=== PATIENT | male | born 1945 | race Caucasian/White ===

== ENCOUNTER 2016-09-15 10:30 | Day surgery (SDC) | payer OTHER ==
[2016-09-10 15:36] VITALS: BMI 29.9
[~2016-09-15 10:30] MED LIST: LACTATED RINGERS 1,000 ML IV SCH; LIDOCAINE 1% 20 ML VIAL (10MG/ML) FOR IV START INTRADERMA PRN
[2016-09-15 11:21] VITALS: TEMP 97.5
[2016-09-15] MEDS ORDERED: PROPOFOL 10 MG/ML 20 ML VIAL IV ONE (11:48)
[2016-09-15] MEDS ORDERED: LIDOCAINE 1% INJ 10MG/ML (20 ML MDV) ONE (11:48)
--- NOTE | 2016-09-15 12:04 | P.PCN ---
Date of Procedure: 09/15/16 Preoperative Diagnosis: Postoperative Diagnosis: Procedure(s) Performed: BRIEF HISTORY: Patient is a 70-year-old pleasant white male, scheduled for an elective colonoscopy as a part of evaluation of prior history of colon polyps. Last endoscopy was 5 years ago according to the patient. PROCEDURE PERFORMED: Colonoscopy. PREOPERATIVE DIAGNOSIS: History of colon polyps. IV sedation per Anesthesia. PROCEDURE: After informed consent was obtained, the patient, was brought into the endoscopy unit. IV sedation was administered by Anesthesia under continuous monitoring. Digital rectal examination was normal. Initially the Olympus CF- 160 flexible video colonoscope was then inserted in the rectum, gradually advanced into the cecum without any difficulty. Careful examination was performed as the scope was gradually being withdrawn. Ileocecal valve and the appendiceal orifice were visualized and appeared normal. Prep was excellent. Mucosa of the cecum, ascending colon, transverse colon, descending colon, sigmoid colon, and rectum appeared normal. Scattered sigmoid diverticula seen. Retroflexion was performed in the rectum and small internal hemorrhoids were seen. The patient tolerated the procedure well. IMPRESSION: Normal-appearing colon from rectum to cecum with no evidence of colorectal neoplasia. Scattered sigmoid diverticulosis. Small internal hemorrhoids. RECOMMENDATIONS: Findings of this examination were discussed with the patient as well as his family. He was advised to have a repeat screening surveillance coloscopy in 5 years from now because of prior history of colon polyps. Implants: Indications for Procedure: Operative Findings: Description of Procedure:
[2016-09-15 12:11] VITALS: BP 114/74; PULSE 54; RESP 14
== END 2016-09-15 12:57 | disposition home or self-care (01) ==
LOC: ORWHC2ENDO 10:30
PROVIDERS: ATTEND Internal Medicine Gastroenterology
DX: Z12.11 Encounter for screening for malignant neoplasm of colon (principal); K57.30 Diverticulosis of large intestine without perforation or abscess without bleeding; K64.8 Other hemorrhoids; Z86.010 Personal history of colon polyps; I10 Essential (primary) hypertension; E78.5 Hyperlipidemia, unspecified; K21.9 Gastro-esophageal reflux disease without esophagitis; E07.9 Disorder of thyroid, unspecified; M10.9 Gout, unspecified; H40.9 Unspecified glaucoma; Z79.899 Other long term (current) drug therapy; Z88.2 Allergy status to sulfonamides
CPT/HCPCS: J2001; J2704; G0105

== ENCOUNTER → 2018-09-08 | Outpatient (CLI) | payer OTHER ==
--- NOTE | 2018-09-08 11:19 | US ---
EXAMINATION TYPE: US carotid duplex BILAT DATE OF EXAM: 09/08/2018 COMPARISON: NONE CLINICAL HISTORY: R42 DIZZINESS AND GIDDINESS. EXAM MEASUREMENTS: RIGHT: Peak Systolic Velocity (PSV) cm/sec ----- Right CCA: 82.4 ----- Right ICA: 78.5 ----- Right ECA: 192.4 ICA/CCA ratio: 1.0 RIGHT: End Diastole cm/sec ----- Right CCA: 22.8 ----- Right ICA: 22.8 ----- Right ECA: 17.0 LEFT: Peak Systolic Velocity (PSV) cm/sec ----- Left CCA: 86.3 ----- Left ICA: 133.3 ----- Left ECA: 107.7 ICA/CCA ratio: 1.5 LEFT: End Diastole cm/sec ----- Left CCA: 21.5 ----- Left ICA: 52.4 ----- Left ECA: 10.7 VERTEBRALS (direction of flow): Right Vertebral: Antegrade Left Vertebral: Antegrade Rhythm: Arrhythmia calcified and soft plaque bilaterally. Somewhat tortuous vessels. Grayscale, color Doppler, spectral Doppler imaging performed. Waveform analysis does not show signifi cant stenosis of the internal carotid arteries. Mild elevation of peak systolic velocity within the i nternal carotid artery on the left without elevated internal carotid to external carotid artery ratio , there is mild increased velocity on end diastole within the left internal carotid artery IMPRESSION: There are atheromatous changes present greater in the carotid bulb on the left which may be due to tortuous vessel. No hemodynamic significant stenosis of the proximal internal carotid art eries by Doppler criteria, an indirect measurement of carotid stenosis. Additional findings above. Co nsider follow-up. Criteria for Assigning % of Stenosis / Diameter reduction (Estimation based on the indirect measurements of the internal carotid artery velocities (ICA PSV). 1. Normal (no stenosis)=ICA PSV < 125 cm/s: ratio < 2.0: ICA EDV<40 cm/s. 2. Less than 50% stenosis=ICA PSV < 125 cm/s: ratio < 2.0: ICA EDV<40 cm/s. 3. 50 to 69% stenosis=ICA PSV of 125 to 230 cm/s: ration 2.0 ? 4.0: ICA EDV 40-100 cm/s. 4. Greater than 70% stenosis to near occlusion= ICA PSV > 230 cm/s: ratio > 4.0: ICA EDV > 100 cm/s. 5. Near occlusion= ICA PSV velocities may be low or undetectable: variable ratio and ICA EDV. 6. Total occlusion=unable to detect flow.
== END | disposition home or self-care (01) ==
LOC: RADUSWWP 09:07
PROVIDERS: ATTEND Family Medicine
DX: I65.22 Occlusion and stenosis of left carotid artery (principal)
CPT/HCPCS: 93880

== ENCOUNTER → 2020-09-18 | Outpatient (CLI) | payer OTHER ==
--- NOTE | 2020-09-18 12:07 | CT ---
EXAMINATION TYPE: CT abdomen pelvis w con DATE OF EXAM: 09/18/2020 COMPARISON: 02/05/2010 INDICATION: Right mid and lower quadrant pain DLP: 1002.9 mGycm, Automated exposure control for dose reduction was used. CONTRAST: 80 mL of Isovue 300. Study performed with Oral Contrast TECHNIQUE: Axial images were obtained from above the diaphragm to the pubic rami in the axial plane a t 5 mm thick sections. Reconstructed images are reviewed on the computer in the coronal plane. FINDINGS: Limited CT sections are obtained the lung bases. The lung bases are clear. CT ABDOMEN: Liver: There is a 1.9 cm cyst in the superior right lobe liver, present previously. Spleen: There is a heterogenous hypoechoic lesion extending from the medial aspect of the spleen ashlee uring 3.2 x 0.5 cm. This is a new finding from comparison. Pancreas: Normal Adrenal glands: The adrenal glands are normal. Gallbladder: Normal Kidneys: No masses are evident. No hydronephrosis is present. There is a 3.6 cm cyst measuring 8 Ho unsfield units posterior lateral left kidney. Delayed images were obtained through the kidneys, whic h remain unremarkable. Aorta: Vascular calcification is within the aorta. Inferior vena cava: Normal. CT PELVIS: Loops of bowel within the abdomen and pelvis are normal. There are loops of bowel which are incom pletely distended or lack oral contrast limiting their evaluation. Fecal debris is through the colon. A few diverticular changes are within the descending colon and additional multiple diverticuli witho ut acute diverticulitis are within the sigmoid colon. Large fecal bolus is of the rectum. Appendix: Normal as visualized. Urinary bladder: Normal. Genitourinary structures: Prostate is visualized. Multiple surgical clips are present compatible with prior prostatectomy. Osseous structures: There are couple small sclerotic areas within the right femoral neck and within t he posterior pubic ramus and within the medial left pubic ramus. Bone islands and sclerotic metastasi s could be considered. There is an additional punctate sclerotic area within the mid right iliac wing . Facet degenerative changes are through the lower lumbar spine. IMPRESSIONS: 1. Complex heterogenous hypoechoic area which appears to extend from the medial spleen. Additional w orkup is recommended. 2. Diverticulosis without acute diverticulitis. 3. Few scattered punctate sclerotic areas may be bone islands or early metastasis. 4. Left renal cyst
== END | disposition home or self-care (01) ==
LOC: RADCTMAIN 08:36
DX: K57.90 Diverticulosis of intestine, part unspecified, without perforation or abscess without bleeding (principal); N28.1 Cyst of kidney, acquired; R93.5 Abnormal findings on diagnostic imaging of other abdominal regions, including retroperitoneum; R10.30 Lower abdominal pain, unspecified
CPT/HCPCS: 82565; 84520; 74177; 36415; Q9967

== ENCOUNTER → 2020-10-31 | Outpatient (CLI) | payer OTHER ==
--- NOTE | 2020-10-31 13:27 | PE ---
EXAMINATION TYPE: PET CT fusion skull to thigh DATE OF EXAM: 10/31/2020 COMPARISON: CT abdomen and pelvis September 18, 2020 and older study February 05, 2010. HISTORY: Recent abnormal CT, history of prostate cancer and left-sided kidney cancer. TECHNIQUE: Following the intravenous administration of 10.20 mCi of F-18 FDG, whole body images are performed from the skull base to the midthigh. Images are reviewed on the computer in the coronal, a xial, and sagittal planes. Reconstructed rotating images are created on independent workstation and reviewed on the computer. A localization and attenuation correction CT is performed in conjunction with the PET scan. Blood glucose level equals 89. SCAN: Initial Scan FINDINGS: SKULL BASE AND NECK: No suspicious hypermetabolic uptake. CHEST, MEDIASTINUM, AND HILAR REGION: No suspicious hypermetabolic uptake. ABDOMEN AND PELVIS: No suspicious hypermetabolic uptake. OSSEOUS STRUCTURES: No suspicious hypermetabolic uptake. OTHER CT: Nasal septum is deviated to right of midline. [id number] calcified plaque left caroti d bulb. Mild to moderate coronary artery calcification is present. Stable 2.3 cm thin-walled cyst in the left hepatic lobe axial image 132. Punctate 1 to 2 mm nonobstru cting calculus right kidney axial image 157. Stable 3.8 cm thin-walled cyst axial image 171 posterior ly lower pole of the left kidney. Sigmoid colonic diverticulosis. Surgical clips from prostatectomy i n the pelvis. Bladder poorly distended with moderate concentric wall thickening current study. Postsu rgical changes in the anterior abdominal intraperitoneal wall without recurrent hernia redemonstrated . There is better visualized cortical volume loss posteriorly and hyperdense material suspected surgica l changes to the upper pole left kidney laterally on current study. Just superior and posterior to th is abutting the medial aspect of the spleen there is redemonstration of oval mass containing fat and soft tissue density that has some surrounding tiny linear hyperdense material possible surgical clips . No abnormal hypermetabolic uptake at this level identified. Lesion is posterior and appears separat e to the left adrenal gland. IMPRESSION: No suspicious abnormal uptake to suggest hypermetabolic neoplasm. Given that the area of concern was at site of prior surgical change for solid enhancing renal mass or neoplasm I would stron gly favor a benign etiology such as fat necrosis. A retroperitoneal low-grade liposarcoma however can not be entirely excluded. Advise surgical referral to reassess.
== END | disposition home or self-care (01) ==
LOC: RADPETMAIN 07:40
DX: R93.5 Abnormal findings on diagnostic imaging of other abdominal regions, including retroperitoneum (principal); Z85.46 Personal history of malignant neoplasm of prostate; Z85.528 Personal history of other malignant neoplasm of kidney
CPT/HCPCS: 78815; A9552

== ENCOUNTER 2020-12-09 08:21 | Observation (INO) | payer OTHER, MEDICARE ==
[2020-12-09] MEDS ORDERED: ASPIRIN 81 MG PO STA (08:38)
--- NOTE | 2020-12-09 08:42 | ED ---
General Adult HPI - General Chief complaint: Chest Pain Stated complaint: chest pain Time Seen by Provider: 12/09/20 08:26 Source: patient Mode of arrival: ambulatory Limitations: no limitations - History of Present Illness Initial comments: Dictation was produced using iCAD dictation software. please excuse any grammatical, word or spelling errors. Chief Complaint: 75-year-old male past medical history of dyslipidemia hypertension presents to emergency department for episodic chest pain ongoing for the last 10 days History of Present Illness: Patient is a 75-year-old male he has past medical history of dyslipidemia and hypertension. Patient states that for the last 10 days he would have daily episodes of chest pain. He states that he would have 2-3 episodes. He describes them as burning across his anterior chest. Non- radiating to the shoulders or jaw. No associated diaphoresis or nausea. 4-5 years ago patient had a negative stress test. He has not seen a bookseamer blindstitch for any other reason. No history of coronary artery disease. Patient states his father from a aortic dissection and his grandfather on that side had allegedly a heart attack. Patient denies any symptoms currently. States that his symptoms last for several minutes. He had an episode this morning. The ROS documented in this emergency department record has been reviewed and confirmed by me. Those systems with pertinent positive or negative responses have been documented in the HPI. All other systems are other negative and/or noncontributory. PHYSICAL EXAM: General Impression: Alert and oriented x3, not in acute distress HEENT: Normocephalic atraumatic, extra-ocular movements intact, pupils equal and reactive to light bilaterally, mucous membranes moist. Cardiovascular: Heart regular rate and rhythm Chest: Able to complete full sentences, no retractions, no tachypnea Abdomen: abdomen soft, non-tender, non-distended, no organomegaly Musculoskeletal: Pulses present and equal in all extremities, no peripheral otto ma Motor: no focal deficits noted Neurological: CN II-XII grossly intact, no focal motor or sensory deficits noted Skin: Intact with no visualized rashes Psych: Normal affect and mood ED course: 75-year-old male presents to the emergency department for atypical chest pain with typical features. Vital signs upon arrival are within acceptable limits. Laboratory evaluation obtained. CBC, coag panel, metabolic panel is unremarkable. First troponin is negative. Patient reevaluated bedside at 10:06 AM. Denies any recurrence of chest pain. Disposition options were discussed. Patient is agreeable for observation admission with cardiac monitoring, serial troponins and consultation to cardiology. Patient given aspirin. EKG interpretation: Ventricular rate 63, normal sinus rhythm,. 152, QRS 80, QTc 401. No MA prolongation, no QTC prolongation, no ST or T-wave changes noted. Overall, this EKG is unremarkable - Related Data Home Medications Medication Instructions Recorded Confirmed Atorvastatin [Lipitor] 40 mg PO HS 09/10/16 12/09/20 Brinzolamide/Brimonidine Tart 1 drop BOTH EYES TID 09/10/16 12/09/20 [Simbrinza 1%-0.2% Eye Drops] Latanoprost Ophth [Xalatan 0.005%] 1 drops BOTH EYES HS 09/10/16 12/09/20 Levothyroxine Sodium [Synthroid] 25 mcg PO DAILY 09/10/16 12/09/20 Losartan [Cozaar] 25 mg PO DAILY 09/10/16 12/09/20 allopurinoL [Zyloprim] 100 mg PO DAILY 09/10/16 12/09/20 Betamethasone Dipropionate 1 applic TOPICAL DAILY PRN 12/09/20 12/09/20 [Betamethasone Dipropionate 0.05%] Brimonidine Tartrate [Mirvaso] 1 applic TOPICAL DAILY 12/09/20 12/09/20 Doxycycline Hyclate 50 mg PO DAILY 12/09/20 12/09/20 Fluticasone Nasal [place] [Flonase 1 spray EA NOSTRIL DAILY PRN 12/09/20 12/09/20 Nasal [place]] Loratadine [Claritin] 10 mg PO DAILY PRN 12/09/20 12/09/20 Netarsudil Mesylate [Rhopressa] 1 drop LEFT EYE HS 12/09/20 12/09/20 Omeprazole [PriLOSEC] 40 mg PO DAILY 12/09/20 12/09/20 Sildenafil Citrate [Viagra] 100 mg PO DAILY PRN 12/09/20 12/09/20 Timolol [Betimol 0.5% Ophth Soln] 1 drop BOTH EYES BID 12/09/20 12/09/20 Allergies Allergy/AdvReac Type Severity Reaction Status Date / Time Sulfa (Sulfonamide Allergy Severe Unknown Verified 12/09/20 08:58 Antibiotics) Childhood Review of Systems ROS Statement: Those systems with pertinent positive or pertinent negative responses have been documented in the HPI. ROS Other: All systems not noted in ROS Statement are negative. Past Medical History Past Medical History: Cancer, GERD/Reflux, Hyperlipidemia, Hypertension, Prostate Disorder Additional Past Medical History / Comment(s): GLAUCOMA,KIDNEY CANCER, PROSTATE CANCER History of Any Multi-Drug Resistant Organisms: None Reported Past Surgical History: Hernia Repair, Orthopedic Surgery, Prostate Surgery Additional Past Surgical History / Comment(s): LEFT KIDNEY-PARTIAL REMOVED, RIGHT SHOULDER, CATARACT SURGERY- BILATERAL, UMBILICAL HERNIA Past Anesthesia/Blood Transfusion Reactions: No Reported Reaction Past Psychological History: No Psychological Hx Reported Smoking Status: Never smoker Past Alcohol Use History: Occasional Past Drug Use History: None Reported - Past Family History Mother Family Medical History: No Reported History General Exam Limitations: no limitations Course Vital Signs 12/09/20 08:22 Temperature 97.2 F L Pulse Rate 64 Respiratory 16 Rate Blood Pressure 144/93 O2 Sat by Pulse 99 Oximetry Medical Decision Making - Lab Data Result diagrams: 12/09/20 08:39 12/09/20 08:39 Lab Results 12/09/20 12/09/20 12/09/20 Range/Units 08:39 08:39 08:39 WBC 5.4 (3.8-10.6) k/uL RBC 4.85 (4.30-5.90) m/uL Hgb 15.8 (13.0-17.5) gm/dL Hct 46.9 (39.0-53.0) % MCV 96.8 (80.0-100.0) fL MCH 32.6 (25.0-35.0) pg MCHC 33.7 (31.0-37.0) g/dL RDW 13.1 (11.5-15.5) % Plt Count 162 (150-450) k/uL MPV 7.9 Neutrophils % 67 % Lymphocytes % 18 % Monocytes % 7 % Eosinophils % 5 % Basophils % 1 % Neutrophils # 3.6 (1.3-7.7) k/uL Lymphocytes # 1.0 (1.0-4.8) k/uL Monocytes # 0.4 (0-1.0) k/uL Eosinophils # 0.3 (0-0.7) k/uL Basophils # 0.0 (0-0.2) k/uL PT 10.4 (9.0-12.0) sec INR 1.0 (<1.2) APTT 27.4 (22.0-30.0) sec Sodium 141 (137-145) mmol/L Potassium 4.1 (3.5-5.1) mmol/L Chloride 105 (98-107) mmol/L Carbon Dioxide 27 (22-30) mmol/L Anion Gap 9 mmol/L BUN 18 (9-20) mg/dL Creatinine 1.22 (0.66-1.25) mg/dL Est GFR (CKD-EPI)AfAm 66 (>60 ml/min/1.73 sqM) Est GFR (CKD-EPI)NonAf 57 (>60 ml/min/1.73 sqM) Glucose 147 H (74-99) mg/dL Calcium 9.4 (8.4-10.2) mg/dL Magnesium 1.9 (1.6-2.3) mg/dL Total Bilirubin 0.8 (0.2-1.3) mg/dL AST 35 (17-59) U/L ALT 30 (4-49) U/L Alkaline Phosphatase 84 (38-126) U/L Troponin I (0.000-0.034) ng/mL Total Protein 7.1 (6.3-8.2) g/dL Albumin 4.2 (3.5-5.0) g/dL Lipase 129 (23-300) U/L 12/09/20 Range/Units 08:39 WBC (3.8-10.6) k/uL RBC (4.30-5.90) m/uL Hgb (13.0-17.5) gm/dL Hct (39.0-53.0) % MCV (80.0-100.0) fL MCH (25.0-35.0) pg MCHC (31.0-37.0) g/dL RDW (11.5-15.5) % Plt Count (150-450) k/uL MPV Neutrophils % % Lymphocytes % % Monocytes % % Eosinophils % % Basophils % % Neutrophils # (1.3-7.7) k/uL Lymphocytes # (1.0-4.8) k/uL Monocytes # (0-1.0) k/uL Eosinophils # (0-0.7) k/uL Basophils # (0-0.2) k/uL PT (9.0-12.0) sec INR (<1.2) APTT (22.0-30.0) sec Sodium (137-145) mmol/L Potassium (3.5-5.1) mmol/L Chloride (98-107) mmol/L Carbon Dioxide (22-30) mmol/L Anion Gap mmol/L BUN (9-20) mg/dL Creatinine (0.66-1.25) mg/dL Est GFR (CKD-EPI)AfAm (>60 ml/min/1.73 sqM) Est GFR (CKD-EPI)NonAf (>60 ml/min/1.73 sqM) Glucose (74-99) mg/dL Calcium (8.4-10.2) mg/dL Magnesium (1.6-2.3) mg/dL Total Bilirubin (0.2-1.3) mg/dL AST (17-59) U/L ALT (4-49) U/L Alkaline Phosphatase (38-126) U/L Troponin I <0.012 (0.000-0.034) ng/mL Total Protein (6.3-8.2) g/dL Albumin (3.5-5.0) g/dL Lipase (23-300) U/L Disposition Clinical Impression: Chest pain Disposition: ADMITTED IP TO THIS HOSP Referrals: [facility],Clinic [Primary Care Provider] - 1-2 days
[2020-12-09 08:51] LABS: Basophils % (A) 1 %; Eosinophils # (A) 0.3 k/uL (0-0.7); Eosinophils % (A) 5 %; HCT 46.9 % (39.0-53.0); HGB 15.8 gm/dL (13.0-17.5); Lymphocytes % (A) 18 %; MCH 32.6 pg (25.0-35.0); MCHC 33.7 g/dL (31.0-37.0); MCV 96.8 fL (80.0-100.0); Mean Platelet Volume 7.9; Monocytes # (A) 0.4 k/uL (0-1.0); Monocytes % (A) 7 %; Neutrophils # (A) 3.6 k/uL (1.3-7.7); Neutrophils % (A) 67 %; Platelet Count 162 k/uL (150-450); RBC 4.85 m/uL (4.30-5.90); RDW 13.1 % (11.5-15.5); WBC 5.4 k/uL (3.8-10.6)
[2020-12-09 09:01] LABS: Partial Thromboplastin Time 27.4 sec (22.0-30.0); Prothrombin Time 10.4 sec (9.0-12.0)
[2020-12-09 09:05] LABS: Albumin 4.2 g/dL (3.5-5.0); Calcium 9.4 mg/dL (8.4-10.2); Magnesium 1.9 mg/dL (1.6-2.3); Potassium 4.1 mmol/L (3.5-5.1); Total Bilirubin 0.8 mg/dL (0.2-1.3); Total Protein 7.1 g/dL (6.3-8.2)
--- NOTE | 2020-12-09 09:15 | XR ---
EXAMINATION TYPE: XR chest 2V DATE OF EXAM: 12/09/2020 COMPARISON: Correlation PET/CT 10/31/2020 and prior chest radiograph 11/30/2013 HISTORY: 75-year-old male with chest pain TECHNIQUE: PA and lateral views FINDINGS: Cardiomediastinal silhouette, aorta, and pulmonary vasculature within normal limits. Some strandy ate lectasis in the lower lungs. Anterior endplate spondylosis at the lower thoracic spine. 9 mm nodulari ty periphery of the right upper lung. IMPRESSION: Unable to exclude a new 9 mm pulmonary nodule in the periphery of the right upper lobe versus some ty pe of external artifact. No pulmonary nodule was seen on the patient's recent 10/31/2020 PET/CT. Recom mend oncologic referral as to the next best step in further evaluation. Otherwise, no acute cardiopulmonary process.
[2020-12-09] MEDS ORDERED: NITROGLYCERIN SL TABS 0.4 MG TAB SUBLINGUAL PRN (10:03)
[2020-12-09] MEDS ORDERED: FLUTICASONE 50MCG/SPRAY NASAL 16GM EA NOSTRIL PRN (10:42)
--- NOTE | 2020-12-09 10:55 | P.HPIM ---
History of Present Illness This is a pleasant 75 years old male with past medical history of hypertension, hyperlipidemia, GERD, benign prostatic hypertrophy. He is from the [facility] Presents because of chest pain for 1.5 weeks duration, on the right side have been some episodes about 2-5 episodes per day, pain when it happens last for 1-5 minutes. Severity is about 5/10. No dyspnea or coughing. No dizziness. No urinary or abdominal complaints. No abdominal pain or nausea vomiting. No diarrhea. Patient states that he has PET scan done for abdominal complaints with his [place] PCP nurse practitioner Pa blackman Patient states he's never smoked, alcohol once to twice a week. No illicit drugs Vital signs stable, labs including CBC, INR, BMP and liver enzymes are unremarkable. Lipase is normal. Troponin normal is on 0.012. Coronavirus nondetected Chest x-ray: No acute process. 9 mm pulmonary nodule EKG showing normal sinus rhythm at [address]-T changes Review of Systems CONSTITUTIONAL: No fever, no malaise, no fatigue. HEENT: No recent visual problems or hearing problems. Denied any sore throat. CARDIOVASCULAR: No orthopnea, PND, no palpitations, no syncope. PULMONARY: No shortness of breath, no cough, no hemoptysis. GASTROINTESTINAL: No diarrhea, no nausea, no vomiting, no abdominal pain. Normoactive bowel sounds. NEUROLOGICAL: No headaches, no weakness, no numbness. HEMATOLOGICAL: Denies any bleeding or petechiae. GENITOURINARY: Denies any burning micturition, frequency, or urgency. MUSCULOSKELETAL/RHEUMATOLOGICAL: Denies any joint pain, swelling, or any muscle pain. ENDOCRINE: Denies any polyuria or polydipsia. Past Medical History Past Medical History: Cancer, GERD/Reflux, Hyperlipidemia, Hypertension, Prostat e Disorder Additional Past Medical History / Comment(s): GLAUCOMA,KIDNEY CANCER, PROSTATE CANCER History of Any Multi-Drug Resistant Organisms: None Reported Past Surgical History: Hernia Repair, Orthopedic Surgery, Prostate Surgery Additional Past Surgical History / Comment(s): LEFT KIDNEY-PARTIAL REMOVED, RIGHT SHOULDER, CATARACT SURGERY- BILATERAL, UMBILICAL HERNIA Past Anesthesia/Blood Transfusion Reactions: No Reported Reaction Past Psychological History: No Psychological Hx Reported Smoking Status: Never smoker Past Alcohol Use History: Occasional Past Drug Use History: None Reported - Past Family History Mother Family Medical History: No Reported History Medications and Allergies Home Medications Medication Instructions Recorded Confirmed Type Atorvastatin [Lipitor] 40 mg PO HS 09/10/16 12/09/20 History Brinzolamide/Brimonidine Tart 1 drop BOTH EYES TID 09/10/16 12/09/20 History [Simbrinza 1%-0.2% Eye Drops] Latanoprost Ophth [Xalatan 0.005%] 1 drops BOTH EYES HS 09/10/16 12/09/20 History Levothyroxine Sodium [Synthroid] 25 mcg PO DAILY 09/10/16 12/09/20 History Losartan [Cozaar] 25 mg PO DAILY 09/10/16 12/09/20 History allopurinoL [Zyloprim] 100 mg PO DAILY 09/10/16 12/09/20 History Betamethasone Dipropionate 1 applic TOPICAL DAILY PRN 12/09/20 12/09/20 History [Betamethasone Dipropionate 0.05%] Brimonidine Tartrate [Mirvaso] 1 applic TOPICAL DAILY 12/09/20 12/09/20 History Doxycycline Hyclate 50 mg PO DAILY 12/09/20 12/09/20 History Fluticasone Nasal [place] [Flonase 1 spray EA NOSTRIL DAILY PRN 12/09/20 12/09/20 History Nasal [employer]] Loratadine [Claritin] 10 mg PO DAILY PRN 12/09/20 12/09/20 History Netarsudil Mesylate [Rhopressa] 1 drop LEFT EYE HS 12/09/20 12/09/20 History Omeprazole [PriLOSEC] 40 mg PO DAILY 12/09/20 12/09/20 History Sildenafil Citrate [Viagra] 100 mg PO DAILY PRN 12/09/20 12/09/20 History Timolol [Betimol 0.5% Ophth Soln] 1 drop BOTH EYES BID 12/09/20 12/09/20 History Allergies Allergy/AdvReac Type Severity Reaction Status Date / Time Sulfa (Sulfonamide Allergy Severe Unknown Verified 12/09/20 08:58 Antibiotics) Childhood Physical Exam Vitals: Vital Signs Temp Pulse Resp BP Pulse Ox 12/09/20 08:22 97.2 F L 64 16 144/93 99 Intake and Output 12/08/20 12/09/20 12/09/20 22:59 06:59 14:59 Other: Weight 99.79 kg GENERAL: The patient is alert and oriented x3, not in any acute distress. Well developed, well nourished. HEENT: Pupils are round and equally reacting to light. EOMI. No scleral icterus. No conjunctival pallor. Normocephalic, atraumatic. No pharyngeal erythema. No thyromegaly. CARDIOVASCULAR: S1 and S2 present. No murmurs, rubs, or gallops. PULMONARY: Chest is clear to auscultation, no wheezing or crackles. ABDOMEN: Soft, nontender, nondistended, normoactive bowel sounds. No palpable organomegaly. MUSCULOSKELETAL: No joint swelling or deformity. EXTREMITIES: No cyanosis, clubbing, or pedal edema. NEUROLOGICAL: Gross neurological examination did not reveal any focal deficits. SKIN: No rashes. No petechiae Results CBC & Chem 7: 12/09/20 08:39 12/09/20 08:39 Labs: Abnormal Lab Results - Last 24 Hours (Table) 12/09/20 Range/Units 08:39 Glucose 147 H (74-99) mg/dL Assessment and Plan Assessment: Chest pain, rule out cardiac causes pulmonary nodule Hypertension Hyperlipidemia History of GERD History of prostatic problem Hypothyroidism Plan: This is a pleasant 75 years old male who presents because of chest pain. Continue with aspirin, serial troponins. Cardiology consult Consult pulmonary service Patient states that [facility] Labs and medication were reviewed.. Continue same treatment. Continue with symptomatic treatment. Resume home medication. Monitor lytes and vitals. DVT and GI prophylaxis. Further recommendations depends on the clinical course of the patient DVT prophylaxis: Subcutaneous heparin GI Prophylaxis: Pepcid Prognosis is guarded
[2020-12-09] MEDS: TIMOLOL 0.5% OPHTH DROPS 5 ML BTL BOTH EYES SCH ×2 (13:55→21:22)
--- NOTE | 2020-12-09 16:28 | P.CNPUL ---
History of Present Illness Consult date: 12/09/20 Reason for consult: chest pain Chief complaint: Patient came into the hospital for evaluation of chest wall pain for 10 day History of present illness: Patient is a 75-year-old male who follows at the [facility], patient started having intermittent chest pain mainly right side of the chest and mid hard about 10 days ago 2-5 episodes intermittent waxing and waning character he described severity to be 5 out of 10, he denies any shortness of breath denies any cough or sputum production denies any night sweats fever and chills, patient has a renal cell and prostate cancer underwent PET scan few weeks ago patient had a chest x-ray found to have a 9 mm nodule, asked to evaluate this patient further, 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, nonsmoker throughout her life Prior medical history significant for renal cell, prostate cancer, glaucoma, status post left nephrectomy partial Review of the x-ray revealed a 9 mm ill-defined nodule in right upper lobe versus artifact, off note that on 10/31/2020 not seen Review of Systems All systems: negative Past Medical History Past Medical History: Cancer, GERD/Reflux, Hyperlipidemia, Hypertension, Prostate Disorder Additional Past Medical History / Comment(s): GLAUCOMA,KIDNEY CANCER, PROSTATE CANCER History of Any Multi-Drug Resistant Organisms: None Reported Past Surgical History: Hernia Repair, Orthopedic Surgery, Prostate Surgery Additional Past Surgical History / Comment(s): LEFT KIDNEY-PARTIAL REMOVED, RIGHT SHOULDER, CATARACT SURGERY- BILATERAL, UMBILICAL HERNIA Past Anesthesia/Blood Transfusion Reactions: No Reported Reaction Past Psychological History: No Psychological Hx Reported Smoking Status: Never smoker Past Alcohol Use History: Occasional Past Drug Use History: None Reported - Past Family History Mother Family Medical History: No Reported History Medications and Allergies Home Medications Medication Instructions Recorded Confirmed Type Atorvastatin [Lipitor] 40 mg PO HS 09/10/16 12/09/20 History Brinzolamide/Brimonidine Tart 1 drop BOTH EYES TID 09/10/16 12/09/20 History [Simbrinza 1%-0.2% Eye Drops] Latanoprost Ophth [Xalatan 0.005%] 1 drops BOTH EYES HS 09/10/16 12/09/20 History Levothyroxine Sodium [Synthroid] 25 mcg PO DAILY 09/10/16 12/09/20 History Losartan [Cozaar] 25 mg PO DAILY 09/10/16 12/09/20 History allopurinoL [Zyloprim] 100 mg PO DAILY 09/10/16 12/09/20 History Betamethasone Dipropionate 1 applic TOPICAL DAILY PRN 12/09/20 12/09/20 History [Betamethasone Dipropionate 0.05%] Brimonidine Tartrate [Mirvaso] 1 applic TOPICAL DAILY 12/09/20 12/09/20 History Doxycycline Hyclate 50 mg PO DAILY 12/09/20 12/09/20 History Fluticasone Nasal [place] [Flonase 1 spray EA NOSTRIL DAILY PRN 12/09/20 12/09/20 History Nasal [place]] Loratadine [Claritin] 10 mg PO DAILY PRN 12/09/20 12/09/20 History Netarsudil Mesylate [Rhopressa] 1 drop LEFT EYE HS 12/09/20 12/09/20 History Omeprazole [PriLOSEC] 40 mg PO DAILY 12/09/20 12/09/20 History Sildenafil Citrate [Viagra] 100 mg PO DAILY PRN 12/09/20 12/09/20 History Timolol [Betimol 0.5% Ophth Soln] 1 drop BOTH EYES BID 12/09/20 12/09/20 History Allergies Allergy/AdvReac Type Severity Reaction Status Date / Time Sulfa (Sulfonamide Allergy Severe Unknown Verified 12/09/20 08:58 Antibiotics) Childhood Physical Exam Vitals: Vital Signs Temp Pulse Resp BP Pulse Ox 12/09/20 15:18 98.3 F 62 16 130/75 98 12/09/20 11:43 55 L 16 108/69 97 12/09/20 08:22 97.2 F L 64 16 144/93 99 Intake and Output 12/09/20 12/09/20 12/09/20 06:59 14:59 22:59 Other: Weight 99.79 kg - Constitutional General appearance: average body habitus, cooperative, disheveled - EENT Eyes: PERRLA Ears: bilateral: normal - Neck Carotids: bilateral: upstroke normal Thyroid: bilateral: normal size - Respiratory Respiratory: bilateral: CTA - Cardiovascular Rhythm: regular Heart sounds: normal: S1, S2 - Gastrointestinal General gastrointestinal: normal bowel sounds, soft - Integumentary Integumentary: normal turgor - Neurologic Neurologic: CNII-XII intact - Musculoskeletal Musculoskeletal: gait normal, generalized weakness, strength equal bilaterally - Psychiatric Psychiatric: A&O x's 3, appropriate affect, intact judgment & insight Results - Laboratory Findings CBC and BMP: 12/09/20 08:39 12/09/20 08:39 PT/INR, D-dimer PT 10.4 sec (9.0-12.0) 12/09/20 08:39 INR 1.0 (<1.2) 12/09/20 08:39 Abnormal lab findings: Abnormal Labs 12/09/20 08:39 Glucose 147 H - Diagnostic Findings Chest x-ray: report reviewed, image reviewed Assessment and Plan Assessment: Right upper lobe 9 mm ill-defined nodule not seen on PET scan performed in October ill-defined right-sided and central chest pain of unclear etiology Hypertension hypertensive cardiovascular disease Dyslipidemia GERD History of the renal cell cancer status post left partial nephrectomy Plan: Patient is currently undergoing evaluation of angina and is scheduled for a stress test We'll get computed tomography scan of the chest without contrast to exclude or include pulmonary nodule Further recommendations pending Time with Patient: Greater than 30
[2020-12-09] MEDS: [UNRECOGNIZED DRUG - OTHER] BOTH EYES SCH ×2 (17:53→21:22)
[2020-12-09] MEDS: BRINZOLAMIDE BOTH EYES SCH ×2 (17:53→21:22)
[2020-12-09] MEDS: BRIMONIDINE TART BOTH EYES SCH ×2 (17:53→21:22)
[2020-12-09] MEDS: FAMOTIDINE 20 MG/2 ML VIAL IV SCH (21:20)
[2020-12-09] MEDS: HEPARIN SODIUM,PORCINE/PF 5,000 UNIT/0.5 ML SYRINGE SQ SCH (21:20)
[2020-12-09] MEDS: ATORVASTATIN 40 MG TAB PO SCH (21:20)
[2020-12-09] MEDS: LATANOPROST 0.005% OPHTH DROPS 2.5 ML BTL BOTH EYES SCH (21:22)
--- NOTE | 2020-12-10 02:40 | CT ---
EXAMINATION TYPE: CT chest wo con DATE OF EXAM: 12/09/2020 COMPARISON: Chest x-ray today. HISTORY: r/o nodule CT DLP: 431.8 mGycm Automated exposure control for dose reduction was used. Images obtained from the thoracic inlet to the diaphragm without contrast. The lungs are clear of infiltrate. There is no pleural effusion. Heart size is normal. There is no pe ricardial effusion. There is no mediastinal adenopathy. There are no hilar masses. There is a fat-containing mass in the left upper quadrant above the upper pole left kidney measuring 4 cm in diameter with small contact wi th the kidney. This could be angiomyolipoma. There is no adrenal mass. There is irregular cortical th inning upper pole left kidney consistent with some atrophy and postsurgical changes. The thoracic vertebra have normal alignment. Posterior elements are intact. Sternum is intact. There is no compression fracture. There is 2.7 cm cyst in the anterior liver. IMPRESSION: No evidence of a pulmonary nodule in the right upper lobe that is suggested by the chest x-ray today. There is mass in the left upper quadrant which is predominantly fat over the upper pole of the left k idney with some stranding extending to the renal cortex and irregular calcification. The margins are sharp. This is in the same area as the upper pole renal mass on the old CT scan of 2009. The mass in the left kidney appear not significantly different than the CT scan of 09/18/2020.
[2020-12-10] MEDS: FAMOTIDINE 20 MG/2 ML VIAL IV SCH ×2 (07:41→22:04)
[2020-12-10] MEDS: LEVOTHYROXINE 25 MCG TAB PO SCH (07:41)
[2020-12-10] MEDS: SODIUM CHLORIDE 0.9% 1,000 ML IV SCH ×2 (09:59→23:00)
[2020-12-10] MEDS: HEPARIN SODIUM,PORCINE/PF 5,000 UNIT/0.5 ML SYRINGE SQ SCH ×2 (10:00→22:05)
[2020-12-10] MEDS: ASPIRIN 325 MG TAB PO SCH (10:00)
[2020-12-10] MEDS: LOSARTAN 25 MG TAB PO SCH (10:00)
[2020-12-10] MEDS: BRIMONIDINE TARTRATE TOPICAL SCH (10:01)
[2020-12-10] MEDS: allopurinoL 100 MG TAB PO SCH (10:01)
[2020-12-10] MEDS: BRINZOLAMIDE BOTH EYES SCH ×3 (10:01→23:00)
[2020-12-10] MEDS: BRIMONIDINE TART BOTH EYES SCH ×3 (10:01→23:00)
[2020-12-10] MEDS: [UNRECOGNIZED DRUG - OTHER] BOTH EYES SCH ×3 (10:01→23:00)
[2020-12-10] MEDS: TIMOLOL 0.5% OPHTH DROPS 5 ML BTL BOTH EYES SCH ×2 (10:02→22:06)
--- NOTE | 2020-12-10 10:10 | CT ---
EXAMINATION TYPE: CT angio chest DATE OF EXAM: 12/10/2020 COMPARISON: 12/09/2020 HISTORY: intermittent chest pain, r/o aortic dissection and pe CT DLP: 847.1 mGycm CONTRAST: CT chest with contrast and 3D reconstruction with MIP imaging is performed without and with IV Contra st, patient injected with 100 mL of Isovue 370. Contrast-enhanced CT of the chest was performed through the course of the pulmonary arteries with christina g and mediastinal window settings submitted. 3D reconstruction with MIP imaging was also performed. PULMONARY ARTERIES: The pulmonary arteries and their major tributaries are patent. I do not see sally dence for sizable filling defect to suggest pulmonary embolic process. LUNGS: The lungs are clear and free of infiltrate. No evidence for atelectasis. No pulmonary nodule or mass is detected. No pleural effusion. MEDIASTINUM: Thoracic aorta is of normal caliber. No evidence for dissection. The heart is not enlarg ed. No evidence for mediastinal mass. No mediastinal lymph nodes greater than 1cm. HILAR STRUCTURES: No evidence for mass. No hilar lymph nodes greater than 1 cm. UPPER ABDOMEN: No significant abnormality is seen. IMPRESSION: 1. No evidence for Pulmonary embolism at this time. No evidence for aortic dissection of the thoraci c aorta.
--- NOTE | 2020-12-10 10:35 | P.GSCN ---
History of Present Illness Consult date: 12/10/20 History of present illness: 75-year-old gentleman in the hospital with chest pain. We are asked to see because of a mass in the left upper quadrant noted on computed tomography scan of the chest. The mass is superior to the left kidney in question whether it is arising from the kidney. Patient has a history of kidney cancer were had a partial nephrectomy states back to around [address] Omero Fofana at [facility]. Apparently this was done robotically. He had a computed tomography scan in August of this year identifying a 3-4 cm hypoechoic lesion it almost appears to be in the bed of the spleen above the kidney and question whether attaches to the kidney. This is the same mass seen recently. The patient's urologic history is that of the renal cell carcinoma treated with partial nephrectomy. His also prostate cancer treated with a radical prostatectomy. Patient has no flank pain no hematuria and no recurring urinary infections. He has not followed closely for his renal cell carcinoma. He has not seen Dr. Fofana many years. He had a PET scan recently that identifies a nonspecific 9 mm lung lesion. Review of Systems All systems: negative - Constitutional Denies fever, Denies weight loss - EENT Eyes: denies blurred vision Ears, nose, mouth and throat: Denies dysphagia - Cardiovascular Denies chest pain, Denies shortness of breath - Respiratory Denies cough, Denies 7 - Gastrointestinal Reports as per HPI - Genitourinary Denies dysuria, Denies hematuria - Integumentary Denies rash, Denies unusual bruising - Neurological Denies headaches, Denies syncope - Hematologic/Lymphatic Denies easy bleeding, Denies easy bruising Past Medical History Past Medical History: Cancer, GERD/Reflux, Hyperlipidemia, Hypertension, Prostate Disorder Additional Past Medical History / Comment(s): GLAUCOMA,KIDNEY CANCER, PROSTATE CANCER History of Any Multi-Drug Resistant Organisms: None Reported Past Surgical History: Hernia Repair, Orthopedic Surgery, Prostate Surgery Additional Past Surgical History / Comment(s): LEFT KIDNEY-PARTIAL REMOVED, RIGHT SHOULDER, CATARACT SURGERY- BILATERAL, UMBILICAL HERNIA Past Anesthesia/Blood Transfusion Reactions: No Reported Reaction Past Psychological History: No Psychological Hx Reported Smoking Status: Never smoker Past Alcohol Use History: Occasional Past Drug Use History: None Reported - Past Family History Mother Family Medical History: No Reported History Medications and Allergies Home Medications Medication Instructions Recorded Confirmed Type Atorvastatin [Lipitor] 40 mg PO HS 09/10/16 12/09/20 History Brinzolamide/Brimonidine Tart 1 drop BOTH EYES TID 09/10/16 12/09/20 History [Simbrinza 1%-0.2% Eye Drops] Latanoprost Ophth [Xalatan 0.005%] 1 drops BOTH EYES HS 09/10/16 12/09/20 History Levothyroxine Sodium [Synthroid] 25 mcg PO DAILY 09/10/16 12/09/20 History Losartan [Cozaar] 25 mg PO DAILY 09/10/16 12/09/20 History allopurinoL [Zyloprim] 100 mg PO DAILY 09/10/16 12/09/20 History Betamethasone Dipropionate 1 applic TOPICAL DAILY PRN 12/09/20 12/09/20 History [Betamethasone Dipropionate 0.05%] Brimonidine Tartrate [Mirvaso] 1 applic TOPICAL DAILY 12/09/20 12/09/20 History Doxycycline Hyclate 50 mg PO DAILY 12/09/20 12/09/20 History Fluticasone Nasal [place] [Flonase 1 spray EA NOSTRIL DAILY PRN 12/09/20 12/09/20 History Nasal [place]] Loratadine [Claritin] 10 mg PO DAILY PRN 12/09/20 12/09/20 History Netarsudil Mesylate [Rhopressa] 1 drop LEFT EYE HS 12/09/20 12/09/20 History Omeprazole [PriLOSEC] 40 mg PO DAILY 12/09/20 12/09/20 History Sildenafil Citrate [Viagra] 100 mg PO DAILY PRN 12/09/20 12/09/20 History Timolol [Betimol 0.5% Ophth Soln] 1 drop BOTH EYES BID 12/09/20 12/09/20 History Allergies Allergy/AdvReac Type Severity Reaction Status Date / Time Sulfa (Sulfonamide Allergy Severe Unknown Verified 12/09/20 08:58 Antibiotics) Childhood Surgical - Exam Vital Signs Temp Pulse Resp BP Pulse Ox 97.2 F L 64 16 144/93 99 12/09/20 08:22 12/09/20 08:22 12/09/20 08:22 12/09/20 08:22 12/09/20 08:22 - General well developed, well nourished, no distress - Eyes PERRL - ENT no hearing loss - Neck trachea midline - Cardiovascular Rhythm: regular - Abdomen Abdomen: soft, non tender - Genitourinary normal penis with no external lesions, testicles present - Neurologic normal coordination, normal sensation - Musculoskeletal normal posture - Psychiatric oriented to time, oriented to person, oriented to place, speech is normal, memory intact Results - Labs 12/09/20 08:39 12/09/20 08:39 Abnormal Lab Results - Last 24 Hours (Table) 12/09/20 Range/Units 08:39 Glucose 147 H (74-99) mg/dL Diabetes panel 12/09/20 Range/Units 08:39 Sodium 141 (137-145) mmol/L Potassium 4.1 (3.5-5.1) mmol/L Chloride 105 (98-107) mmol/L Carbon Dioxide 27 (22-30) mmol/L BUN 18 (9-20) mg/dL Creatinine 1.22 (0.66-1.25) mg/dL Glucose 147 H (74-99) mg/dL Calcium 9.4 (8.4-10.2) mg/dL AST 35 (17-59) U/L ALT 30 (4-49) U/L Alkaline Phosphatase 84 (38-126) U/L Total Protein 7.1 (6.3-8.2) g/dL Albumin 4.2 (3.5-5.0) g/dL Calcium panel 12/09/20 Range/Units 08:39 Calcium 9.4 (8.4-10.2) mg/dL Albumin 4.2 (3.5-5.0) g/dL Pituitary panel 12/09/20 Range/Units 08:39 Sodium 141 (137-145) mmol/L Potassium 4.1 (3.5-5.1) mmol/L Chloride 105 (98-107) mmol/L Carbon Dioxide 27 (22-30) mmol/L BUN 18 (9-20) mg/dL Creatinine 1.22 (0.66-1.25) mg/dL Glucose 147 H (74-99) mg/dL Calcium 9.4 (8.4-10.2) mg/dL Adrenal panel 12/09/20 Range/Units 08:39 Sodium 141 (137-145) mmol/L Potassium 4.1 (3.5-5.1) mmol/L Chloride 105 (98-107) mmol/L Carbon Dioxide 27 (22-30) mmol/L BUN 18 (9-20) mg/dL Creatinine 1.22 (0.66-1.25) mg/dL Glucose 147 H (74-99) mg/dL Calcium 9.4 (8.4-10.2) mg/dL Total Bilirubin 0.8 (0.2-1.3) mg/dL AST 35 (17-59) U/L ALT 30 (4-49) U/L Alkaline Phosphatase 84 (38-126) U/L Total Protein 7.1 (6.3-8.2) g/dL Albumin 4.2 (3.5-5.0) g/dL Assessment and Plan Assessment: Impression: Retroperitoneal mass consistent with fat and fluid simply related to postsurgical partial nephrectomy years past. History of kidney cancer without recurrence. History of prostate cancer. Medical illnesses. Recommendations: I reviewed the computed tomography scan from August as well as this hospitalization with the radiologist. This mass has an attenuation of fat. Most likely this is fat necrosis related to his previous surgery however always the risk of a liposarcoma is something to consider. This should be watched relatively closely a follow-up computed tomography scan in 6 months. If the lesion gets bigger will need to be biopsied. This does not appear to be urologic however.
[2020-12-10 10:52] LABS: Chol/HDL Ratio 3.94 Ratio; HDL Cholesterol 34.5 mg/dL (40.00-60.00); LDL Cholesterol,Calculated 59.1 mg/dL (0.0-131.0); VLDL Calculation 42.4 mg/dL (5.00-40.00)
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
--- NOTE | 2020-12-10 13:15 | P.PN ---
Subjective This is a pleasant 75 years old male with past medical history of hypertension, hyperlipidemia, GERD, benign prostatic hypertrophy. He is from the [facility] because of chest pain for 1.5 weeks duration, on the right side have been some episodes about 2-5 episodes per day, pain when it happens last for 1-5 minutes. Severity is about 5/10. No dyspnea or coughing. No dizziness. No urinary or abdominal complaints. No abdominal pain or nausea vomiting. No diarrhea. Patient states that he has PET scan done for abdominal complaints with his [place] PCP nurse practitioner Pa blackman Patient states he's never smoked, alcohol once to twice a week. No illicit drugs Vital signs stable, labs including CBC, INR, BMP and liver enzymes are unremarkable. Lipase is normal. Troponin normal is on 0.012. Coronavirus nondetected Chest x-ray: No acute process. 9 mm pulmonary nodule EKG showing normal sinus rhythm at [address]-T changes 12/10/2020 Patient is fully awake and oriented, no chest pain, he complains from right shoulder pain which is chronic for 1 month, no limitation of movement in his upper extremity. No trauma or fall. Vitals are stable and labs reviewed Patient evaluated by pulmonary service and recommended CT of the chest without contrast to rule out pulmonary nodule, CT shows no nodules but possible mass close to the left kidney, urology consulted and recommended outpatient follow-up Cardiology evaluated the patient however they recommended CT of the chest to rule out aortic dissection since he has family history and his father with a similar problem. CTA of the chest showed no evidence of pulmonary embolism, no evidence of aortic dissection. No mention of pulmonary nodule before the testI discussed the risk and benefit of CT of the chest with contrast including but not limited ALLERGY and nephrotoxicity, he verbalized understanding and agreed for the test Discussed with the staff Objective - Vital Signs Vital signs: Vital Signs Temp 97.8 F 12/10/20 07:00 Pulse 78 12/10/20 08:00 Resp 18 12/10/20 08:00 BP 120/72 12/10/20 07:00 Pulse Ox 97 12/10/20 07:00 Intake & Output 12/09/20 12/10/20 12/10/20 18:59 06:59 18:59 Intake Total 118 Balance 118 Weight 99.79 kg Intake: Oral 118 Other: Voiding Method Toilet # Voids 2 - Exam GENERAL: The patient is alert and oriented x3, not in any acute distress. Well developed, well nourished. HEENT: Pupils are round and equally reacting to light. EOMI. No scleral icterus. No conjunctival pallor. Normocephalic, atraumatic. No pharyngeal erythema. No thyromegaly. CARDIOVASCULAR: S1 and S2 present. No murmurs, rubs, or gallops. PULMONARY: Chest is clear to auscultation, no wheezing or crackles. ABDOMEN: Soft, nontender, nondistended, normoactive bowel sounds. No palpable organomegaly. MUSCULOSKELETAL: No joint swelling or deformity. EXTREMITIES: No cyanosis, clubbing, or pedal edema. NEUROLOGICAL: Gross neurological examination did not reveal any focal deficits. SKIN: No rashes. no petechiae. - Labs CBC & Chem 7: 12/09/20 08:39 12/09/20 08:39 Labs: Abnormal Lab Results - Last 24 Hours (Table) 12/10/20 Range/Units 05:37 Triglycerides 212.00 H (0.00-149.00) mg/dL VLDL Cholesterol, Calc 42.40 H (5.00-40.00) mg/dL HDL Cholesterol 34.50 L (40.00-60.00) mg/dL Assessment and Plan Assessment: Chest pain, rule out cardiac causes . Rule out dissecting aortic aneurysm per butcherette possible pulmonary nodule. CT of the chest show no nodule Abdominal mass close to the left kidney. Hypertension Hyperlipidemia History of GERD History of prostatic problem Hypothyroidism Plan: This is a pleasant 75 years old male who presents because of chest pain. Continue with aspirin, serial troponins. Cardiology consult recommended CT of the chest to rule out dissecting aneurysm, ordered after discussed with patient and he agrees to risks and benefits Consults urology Consult pulmonary service Patient states that [facility] Labs and medication were reviewed.. Continue same treatment. Continue with symptomatic treatment. Resume home medication. Monitor lytes and vitals. DVT and GI prophylaxis. Further recommendations depends on the clinical course of the patient DVT prophylaxis: Subcutaneous heparin GI Prophylaxis: Pepcid Prognosis is guarded
--- NOTE | 2020-12-10 16:29 | P.PN ---
Subjective Progress Note Date: 12/10/20 Principal diagnosis: Right upper lobe 9 mm ill-defined nodule not seen on PET scan performed in October ill-defined right-sided and central chest pain of unclear etiology Hypertension hypertensive cardiovascular disease Dyslipidemia GERD History of the renal cell cancer status post left partial nephrectomy 12/10/2020, patient seen eval examined during the rounds labs reviewed medications reviewed care plan discussed, respiratory status remains stable patient had a computed tomography scan of his chest without IV contrast followed by cardiology recommendation CT angiogram no dissection is seen, no ill-defined nodule is seen, patient can be discharged home from pulmonary standpoint Patient is a 75-year-old male who follows at [facility], patient started having intermittent chest pain mainly right side of the chest and mid hard about 10 days ago 2-5 episodes intermittent waxing and waning character he described severity to be 5 out of 10, he denies any shortness of breath denies any cough or sputum production denies any night sweats fever and chills, patient has a renal cell and prostate cancer underwent PET scan few weeks ago patient had a chest x-ray found to have a 9 mm nodule, asked to evaluate this patient further, 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, nonsmoker throughout her life Prior medical history significant for renal cell, prostate cancer, glaucoma, status post left nephrectomy partial Review of the x-ray revealed a 9 mm ill-defined nodule in right upper lobe versus artifact, off note that on 10/31/2020 not seen Objective - Vital Signs Vital signs: Vital Signs Temp 97.8 F 12/10/20 15:00 Pulse 62 12/10/20 15:00 Resp 19 12/10/20 15:00 BP 102/60 12/10/20 15:00 Pulse Ox 96 12/10/20 15:00 Intake & Output 12/09/20 12/10/20 12/10/20 18:59 06:59 18:59 Intake Total 118 Balance 118 Weight 99.79 kg Intake: Oral 118 Other: Voiding Method Toilet # Voids 2 4 - Exam - Constitutional General appearance: average body habitus, cooperative, disheveled - EENT Eyes: PERRLA Ears: bilateral: normal - Neck Carotids: bilateral: upstroke normal Thyroid: bilateral: normal size - Respiratory Respiratory: bilateral: CTA - Cardiovascular Rhythm: regular Heart sounds: normal: S1, S2 - Gastrointestinal General gastrointestinal: normal bowel sounds, soft - Integumentary Integumentary: normal turgor - Neurologic Neurologic: CNII-XII intact - Musculoskeletal Musculoskeletal: gait normal, generalized weakness, strength equal bilaterally - Psychiatric Psychiatric: A&O x's 3, appropriate affect, intact judgment & insight - Labs CBC & Chem 7: 12/09/20 08:39 12/09/20 08:39 Labs: Abnormal Lab Results - Last 24 Hours (Table) 12/10/20 Range/Units 05:37 Triglycerides 212.00 H (0.00-149.00) mg/dL VLDL Cholesterol, Calc 42.40 H (5.00-40.00) mg/dL HDL Cholesterol 34.50 L (40.00-60.00) mg/dL Assessment and Plan Assessment: Right upper lobe 9 mm ill-defined nodule not seen on PET scan performed in October, also not seen on computed tomography scan likely confluence of shadow [place] ill-defined right-sided and central chest pain of unclear etiology, improved off Hypertension hypertensive cardiovascular disease Dyslipidemia GERD History of the renal cell cancer status post left partial nephrectomy Plan: Computed tomography scan of the chest without contrast as well as CT angiogram reviewed no nodule is seen patient can be discharged from pulmonary standpoint with follow-up on outpatient basis Time with Patient: Greater than 30
[2020-12-10 19:28] VITALS: RESP 16
[2020-12-10] MEDS: ATORVASTATIN 40 MG TAB PO SCH (22:04)
[2020-12-10] MEDS: LATANOPROST 0.005% OPHTH DROPS 2.5 ML BTL BOTH EYES SCH (22:05)
[2020-12-11] MEDS: LEVOTHYROXINE 25 MCG TAB PO SCH (06:22)
[2020-12-11] MEDS: BRIMONIDINE TARTRATE TOPICAL SCH (08:21)
[2020-12-11] MEDS: ASPIRIN 325 MG TAB PO SCH (08:21)
[2020-12-11] MEDS: allopurinoL 100 MG TAB PO SCH (08:21)
[2020-12-11] MEDS: BRINZOLAMIDE BOTH EYES SCH (08:22)
[2020-12-11] MEDS: HEPARIN SODIUM,PORCINE/PF 5,000 UNIT/0.5 ML SYRINGE SQ SCH (08:22)
[2020-12-11] MEDS: BRIMONIDINE TART BOTH EYES SCH (08:22)
[2020-12-11] MEDS: TIMOLOL 0.5% OPHTH DROPS 5 ML BTL BOTH EYES SCH (08:22)
[2020-12-11] MEDS: LOSARTAN 25 MG TAB PO SCH (08:22)
[2020-12-11] MEDS: [UNRECOGNIZED DRUG - OTHER] BOTH EYES SCH (08:22)
[2020-12-11] MEDS: FAMOTIDINE 20 MG/2 ML VIAL IV SCH (08:22)
[2020-12-11 08:34] VITALS: PULSE 78
[2020-12-11 08:42] VITALS: BP 117/78; TEMP 97.5
--- NOTE | 2020-12-11 09:08 | P.PN ---
Subjective Patient is doing well. He has had no further symptoms no chest discomfort no dizziness or lightheadedness. He's been ablating around the room in the hallways On examination heart sounds are normal normal S1 normal S2 Breath sounds are clear no rhonchi no crackles No JVD No lower extremity edema Blood pressure 131/68 mmHg afebrile pulse rate in the 60s-70s Labs are reviewed HDL 34, LDL 59, triglycerides 112 and total cholesterol 136 TSH is normal 3.3 CT contrast was performed yesterday No evidence for pulmonary embolism No evidence for aortic dissection Impression Hypertension, well controlled Dyslipidemia On good medical treatment with good blood pressure control and an LDL of 59 No evidence for aortic dissection Family history of aortic dissection Plan Patient may go home from a cardiac standpoint and follow Dr. Lang as an out patient in the next 3-4 weeks Objective - Vital Signs Vital signs: Vital Signs Temp 97.5 F L 12/11/20 07:00 Pulse 78 12/11/20 08:00 Resp 16 12/11/20 08:00 BP 117/78 12/11/20 07:00 Pulse Ox 97 12/11/20 07:00 Intake & Output 12/10/20 12/11/20 12/11/20 18:59 06:59 18:59 Intake Total 358 0 Balance 358 0 Intake: Intake, IV Titration 0 Amount Sodium Chloride 0.9% 1, 0 000 ml @ 75 mls/hr IV . [id number] [facility] Rx#:[id number] Oral 358 Other: Voiding Method Toilet Toilet # Voids 4 3 - Labs CBC & Chem 7: 12/09/20 08:39 12/09/20 08:39 Labs: Abnormal Lab Results - Last 24 Hours (Table) 12/10/20 Range/Units 05:37 Triglycerides 212.00 H (0.00-149.00) mg/dL VLDL Cholesterol, Calc 42.40 H (5.00-40.00) mg/dL HDL Cholesterol 34.50 L (40.00-60.00) mg/dL
[2020-12-11 13:22] LABS: African American GFR (CKD) 52.2 (60.0-200.0); Anion Gap 14.6 mmol/L (4.00-12.00); BUN/Creat Ratio 13.72 Ratio (12.00-20.00); Blood Urea Nitrogen 20.3 mg/dL (9.0-27.0); Calcium 9.2 mg/dL (8.7-10.3); Potassium 4.4 mmol/L (3.5-5.5)
[2020-12-11] MEDS ORDERED: FAMOTIDINE 20 MG TAB PO SCH (21:00)
--- NOTE | 2020-12-12 07:47 | P.DS ---
Providers Date of admission: 12/09/20 10:03 Attending physician: Fransisco Pastor MD Consults: 12/09/20 10:03 Consult Physician Urgent Consulting Provider: Yann Lang Consult Reason/Comments: chest pain Do you want consulting provider notified?: Yes 12/09/20 10:42 Consult Physician Urgent Consulting Provider: Toni Marcus Consult Reason/Comments: pulmonary nodule, chest pain Do you want consulting provider notified?: Yes 12/10/20 07:15 Consult Physician Urgent Consulting Provider: Ravinder Saucedo Consult Reason/Comments: possible left kid mass Do you want consulting provider notified?: Yes Primary care physician: [facility] Hospital Course: Diagnoses: Chest pain, resolved and patient was cleared for discharge by nail technician teacher and environmental health physician Suspected pulmonary nodule on chest x-ray. CT of the chest 2 show no nodule Abdominal mass close to the left kidney. Thought it is related to recent surgery and fat necrosis, evaluated by urologist who recommended surveillance follow-up imaging in 6 months Hypertension Hyperlipidemia History of GERD History of prostatic problem Hypothyroidism Hospital course: This is a pleasant 75 years old male with past medical history of hypertension, hyperlipidemia, GERD, benign prostatic hypertrophy. He is from the [facility] because of chest pain for 1.5 weeks duration, patient evaluated by nail technician teacher and environmental health physician recommended CTA of the chest which was negative for PE and negative for dissecting aortic aneurysm. His symptoms improved and patient was with no chest pain, no dyspnea, no change in urine or bowel habits. No fever and was treated for discharge. Urologist consulted for possible mass close to the left kidney seen on the CAT scan of the chest. And found patient has (Retroperitoneal mass consistent with fat and fluid simply related to postsurgical partial nephrectomy years past. History of kidney cancer without recurrence. History of prostate cancer.) Thinks this is most likely fat necrosis related to her previous surgery. However recommended repeat CAT scan in 6 months. Patient was still asymptomatic. Patient informed about his most of the to follow up as an outpatient. I spoke with Sujit at the [facility] and discussed the findings of the case with him including but not limited to the left upper quadrant abdominal mass with recommendation for possible surgical referral versus close monitoring with repeat CAT scan in 4-6 month and he kindly took note of these. Patient informed also about his appointment with nurse practitioner Sujit made on 12/18 and he agrees with it stating he will follow-up. Also risk of cancer are explained for the patient and he verbalized understanding and acceptance Patient was cleared for discharge by all consultants including nail technician teacher, environmental health physician and urologist Problems and management plan were discussed with the patient and he verbalized understanding and acceptance Patient was found stable and can be discharged home however he needs follow-up as an outpatient. Patient was instructed to follow up with PCP velma Rogers from [facility] within one week and patient agrees with the appointments made for him on 12/18 Also patient was instructed to follow up with Dr. Morris in 4 weeks from cardiology and environmental health physician Dr. Marcus in one week and he agrees to call and make his own appointments Physical exam Gen: patient is a AAOx3, no distress CVS: S1-S2, RRR, no murmur Lungs: B/L CTA, no wheezing Abdomen: soft, no distention, no tenderness, positive bowel sounds Extremity: no leg edema or induration Time spent more than 35 minutes Patient Condition at Discharge: Stable Plan - Discharge Summary New Discharge Prescriptions: Continue Atorvastatin [Lipitor] 40 mg PO HS allopurinoL [Zyloprim] 100 mg PO DAILY Losartan [Cozaar] 25 mg PO DAILY Levothyroxine Sodium [Synthroid] 25 mcg PO DAILY Latanoprost Ophth [Xalatan 0.005%] 1 drops BOTH EYES HS Brinzolamide/Brimonidine Tart [Simbrinza 1%-0.2% Eye Drops] 1 drop BOTH EYES TID Betamethasone Dipropionate [Betamethasone Dipropionate 0.05%] 1 applic TOPICAL DAILY PRN PRN Reason: Rash Doxycycline Hyclate 50 mg PO DAILY Netarsudil Mesylate [Rhopressa] 1 drop LEFT EYE HS Fluticasone Nasal [place] [Flonase Nasal [place]] 1 spray EA NOSTRIL DAILY PRN PRN Reason: Allergy Symptoms Brimonidine Tartrate [Mirvaso] 1 applic TOPICAL DAILY Timolol [Betimol 0.5% Ophth Soln] 1 drop BOTH EYES BID Omeprazole [PriLOSEC] 40 mg PO DAILY Loratadine [Claritin] 10 mg PO DAILY PRN PRN Reason: Allergy Symptoms Discontinued Sildenafil Citrate [Viagra] 100 mg PO DAILY PRN PRN Reason: ED Discharge Medication List Atorvastatin [Lipitor] 40 mg PO HS 09/10/16 [History] Brinzolamide/Brimonidine Tart [Simbrinza 1%-0.2% Eye Drops] 1 drop BOTH EYES TID 09/10/16 [History] Latanoprost Ophth [Xalatan 0.005%] 1 drops BOTH EYES HS 09/10/16 [History] Levothyroxine Sodium [Synthroid] 25 mcg PO DAILY 09/10/16 [History] Losartan [Cozaar] 25 mg PO DAILY 09/10/16 [History] allopurinoL [Zyloprim] 100 mg PO DAILY 09/10/16 [History] Betamethasone Dipropionate [Betamethasone Dipropionate 0.05%] 1 applic TOPICAL DAILY PRN 12/09/20 [History] Brimonidine Tartrate [Mirvaso] 1 applic TOPICAL DAILY 12/09/20 [History] Doxycycline Hyclate 50 mg PO DAILY 12/09/20 [History] Fluticasone Nasal [place] [Flonase Nasal [place]] 1 spray EA NOSTRIL DAILY PRN 12/09/20 [History] Loratadine [Claritin] 10 mg PO DAILY PRN 12/09/20 [History] Netarsudil Mesylate [Rhopressa] 1 drop LEFT EYE HS 12/09/20 [History] Omeprazole [PriLOSEC] 40 mg PO DAILY 12/09/20 [History] Timolol [Betimol 0.5% Ophth Soln] 1 drop BOTH EYES BID 12/09/20 [History] Follow up Appointment(s)/Referral(s): Yann Lang MD [STAFF PHYSICIAN] - 4 Weeks (office will call you with appointment. ) Toni Marcus MD [STAFF PHYSICIAN] - 1 Week [facility] [Primary Care Provider] - 12/18/20 3:30 pm (with JOSE RAMON rogers ) Discharge Disposition: HOME SELF-CARE
== END 2020-12-11 12:35 | disposition home or self-care (01) ==
LOC: EC 08:21 → 6NMEDSUR 10:03
PROVIDERS: ADMIT Internal Medicine; ATTEND Internal Medicine
DX: R07.89 Other chest pain (principal); I11.9 Hypertensive heart disease without heart failure; E78.5 Hyperlipidemia, unspecified; Z20.822 Contact with and (suspected) exposure to COVID-19; E03.9 Hypothyroidism, unspecified; K21.9 Gastro-esophageal reflux disease without esophagitis; R19.02 Left upper quadrant abdominal swelling, mass and lump; M25.511 Pain in right shoulder; K42.9 Umbilical hernia without obstruction or gangrene; H40.9 Unspecified glaucoma; Z79.890 Hormone replacement therapy; Z79.899 Other long term (current) drug therapy; Z88.2 Allergy status to sulfonamides; Z90.5 Acquired absence of kidney; Z98.42 Cataract extraction status, left eye; Z98.41 Cataract extraction status, right eye; Z96.1 Presence of intraocular lens; Z90.79 Acquired absence of other genital organ(s); Z85.528 Personal history of other malignant neoplasm of kidney; Z85.46 Personal history of malignant neoplasm of prostate; Z82.49 Family history of ischemic heart disease and other diseases of the circulatory system
CPT/HCPCS: 99285; 96376; 96372; 96374; 36415; 93005; 80061; 80053; 80048; 83690; 83735; 84443; 84484; 85025; 85610; 85730; 83036; 87635; 71046; 71250; 71275; G0378 ×3; Q9967; J1644

== ENCOUNTER → 2021-06-15 | Outpatient (CLI) | payer OTHER ==
--- NOTE | 2021-06-15 13:12 | XR ---
EXAMINATION TYPE: XR chest 2V DATE OF EXAM: 06/15/2021 COMPARISON: 12/09/2020 TECHNIQUE: PA and lateral views submitted. HISTORY: Chest pain FINDINGS: The lungs are clear and there is no pneumothorax, pleural effusion, or focal pneumonia. Hypertrophi c and degenerative change of the spine. Hyperinflation. Heart size normal. No overt failure. Radiopaq ue densities overlying the abdomen may be superficial to the patient correlate for previous anterior abdominal wall surgery. IMPRESSION: 1. Correlate for COPD.
== END | disposition home or self-care (01) ==
LOC: RADXRMAIN 07:58
PROVIDERS: ATTEND Internal Medicine Sleep Medicine
DX: R91.1 Solitary pulmonary nodule (principal)
CPT/HCPCS: 71046

== ENCOUNTER → 2022-12-08 | Outpatient (CLI) | payer OTHER | LOC: CPPFTMAIN 13:47 | DX: R06.02 Shortness of breath (principal); Z88.2 Allergy status to sulfonamides | CPT/HCPCS: 94060; 94726; 94729 ==

== ENCOUNTER → 2024-09-20 | Outpatient (CLI) | payer OTHER ==
--- NOTE | 2024-09-20 10:30 | CT ---
EXAMINATION TYPE: CT abdomen pelvis wo con CT DLP: 765 mGycm, Automated exposure control for dose reduction was used. DATE OF EXAM: 09/20/2024 10:14 AM COMPARISON: Abdominal ultrasound 03/28/2024, PET/CT 10/31/2020, CT abdomen and pelvis 09/18/2020 CLINICAL INDICATION:Male, 78 years old with history of R10.30 LOWER ABDOMINAL PAIN, UNSPECIFIED; RLQ pain TECHNIQUE: Standard CT of the abdomen and pelvis following the administration of oral contrast. Cor onal and sagittal reformats were performed. Limited examination due to lack of intravenous contrast. FINDINGS: LOWER CHEST: Linear atelectasis within the right lower lobe. Otherwise the lungs are clear. Mild lewis nary calcifications. Mitral annulus calcifications. No pericardial effusion. No clinically significan t pulmonary nodule identified. Elevation of the right hemidiaphragm. ABDOMEN LIVER: Stable left hepatic lobe 2.2 cm cyst. GALLBLADDER AND BILE DUCTS: Unremarkable noncontrast appearance. PANCREAS: Unremarkable noncontrast appearance. SPLEEN: Unremarkable noncontrast appearance. ADRENAL GLANDS: Unremarkable noncontrast appearance.. KIDNEYS AND URETERS: No evidence of hydronephrosis. No left renal calculi. Nonobstructing right renal upper pole 3 mm calculus. Left inferior pole 3.5 cm stable simple cysts. No follow-up recommended. S table post surgical changes of the right renal upper pole with suture material. Stable size 4.2 x 3.3 cm mixed hyperdense and low density well-circumscribed lesion along the superior aspect of the kidne y abutting the spleen. PELVIS BLADDER: Unremarkable REPRODUCTIVE: Postsurgical changes from prostatectomy. Bilateral vasectomy clips. ABDOMEN & PELVIS STOMACH AND BOWEL: Stomach and duodenum are unremarkable. Enteric contrast reaches the ileocecal junc tion. Distal colonic diverticulosis without evidence for acute diverticulitis. No bowel wall thickeni ng or surrounding inflammatory changes identified. Appendix is within normal limits. No evidence of b owel obstruction. PERITONEUM: No evidence of pneumoperitoneum or free fluid. VASCULATURE: Mild atherosclerotic calcifications are present throughout the abdominal aorta and its b ranches. No evidence of aortic aneurysm. MUSCULOSKELETAL: No acute osseous abnormalities. Degenerative changes of the pubic symphysis. Grade 1 retrolisthesis of L2 on L3 and grade 1 anterolisthesis of L4 on L5. No pars defects. Multilevel face t arthropathy lower lumbar spine. Prominent degenerative disc disease with endplate sclerosis and sub chondral cystic changes involving L2-L4. LYMPH NODES: No gross evidence for lymphadenopathy. SOFT TISSUE/ABDOMINAL WALL: Postsurgical changes of the anterior abdominal wall midline with small fa t filled umbilical hernia. Postsurgical changes anterior abdominal wall with hernia mesh. IMPRESSION: 1. No CT evidence for acute abdominal/pelvic process within limitations of a nonintravenous contrast exam. 2. Stable postsurgical changes of the left kidney with adjacent complex heterogenous lesion abutting the spleen. This is again favored to be benign due to stability and probably represents fat necrosis. 3. Colonic diverticulosis without evidence for acute diverticulitis. 4. Nonobstructing right renal calculus. [facility], , 09/20/2024 10:27 AM
== END | disposition home or self-care (01) ==
LOC: RADCTMAIN 08:04
PROVIDERS: ATTEND Physician Assistant Medical
DX: N20.0 Calculus of kidney (principal); K57.30 Diverticulosis of large intestine without perforation or abscess without bleeding; Z98.890 Other specified postprocedural states
CPT/HCPCS: 74176